=== PATIENT | male | born 1965 | race Caucasian/White ===

== ENCOUNTER 2023-08-02 14:49 | Outpatient (RCR) | payer OTHER ==
[~2023-08-02 14:49] MED LIST: ATIVAN 0.50.5 MG/TAB PO; ZOFRAN ODT4 MG PO
[2023-08-09] MEDS ORDERED: BENADRYL25 M2 PO (12:06)
[2023-08-09] MEDS ORDERED: PRIL40 PO (12:06)
== END 2023-08-21 | disposition home or self-care (01) ==
LOC: WSST
DX: C09.9 Malignant neoplasm of tonsil, unspecified (principal)